=== PATIENT | male | born 1975 | race Two or more races ===

== ENCOUNTER 2018-01-11 10:43 | Outpatient (CLI) | payer OTHER | END 2018-01-11 10:50 | disposition home or self-care (01) | LOC: LAB 10:43 | DX: D69.49 Other primary thrombocytopenia (principal); M72.2 Plantar fascial fibromatosis; D50.8 Other iron deficiency anemias; D51.8 Other vitamin B12 deficiency anemias; I10 Essential (primary) hypertension; D51.1 Vitamin B12 deficiency anemia due to selective vitamin B12 malabsorption with proteinuria; D51.0 Vitamin B12 deficiency anemia due to intrinsic factor deficiency; E03.8 Other specified hypothyroidism; D68.8 Other specified coagulation defects ==